=== PATIENT | female | born 1950 | race African-American/Black ===

== ENCOUNTER → 2017-11-21 | Outpatient (CLI) | payer MEDICARE, MEDICAID ==
[~2017-11-21] MED LIST: ALPR-341; AMLO5TAB88; ASPI-518 PO; ATEN100T PO; BARIUM SULFATE 450ML ORAL SUSP ONE; CERT200K; CIPROFLOXACIN 0.3% BOTHEYE; CLOP75TA16; CYCL30DR OP; ERGO400C; ESOM40CA; FLUT1DIS3; HYDR1TAB4; LORA10TA7; MONT10TA21; MORP30TA66; NASOI; NITR0.4T49; OMEG1CAP17; POTA20TA12; PREDG05 BOTHEYE; PREG50CA; SIMV40TA5; TRIA1TAB5 PO
== END | disposition home or self-care (01) ==
LOC: CT 07:21
PROVIDERS: ATTEND Internal Medicine Gastroenterology
DX: I70.0 Atherosclerosis of aorta (principal); N28.1 Cyst of kidney, acquired
CPT/HCPCS: 74176

== ENCOUNTER 2017-12-04 07:08 | Inpatient (IN) | payer MEDICARE, OTHER ==
[~2017-12-04] VITALS: Ht 165.1 cm; Wt 64.0 kg
[~2017-12-04 07:08] MED LIST changes: -BARIUM SULFATE 450ML ORAL SUSP ONE
[2017-12-04] MEDS ORDERED: SODIUM CHLORIDE 0.9% 1,000 ML IV ONE (07:40)
[2017-12-04] MEDS ORDERED: PANTOPRAZOLE SODIUM 40 MG/VIAL IV STA (07:40)
[2017-12-04 08:10] LABS: BASOPHILS % 0.7 % (0.0-2.0); EOSINOPHILS % 2.2 % (0.0-5.0); HEMOGLOBIN. 13.5 g/dL (12.0-16.0); LYMPHOCYTES % 21.7 % (20.0-50.0); MEAN CORPUSCULAR HEMOGLOBIN 31.6 pg (28.0-32.0); MEAN CORPUSCULAR VOLUME 93.2 fL (81.0-99.0); MONOCYTES % 6.4 % (2.0-8.0); PLATELET 245 x1000/uL (130-400); RED BLOOD CELL COUNT 4.29 mill/uL (4.2-5.4); RED CELL DISTRIBUTION WIDTH 14.1 % (11.6-14.6)
[2017-12-04 08:13] LABS: CHLORIDE 107 mEq/L (98-107)
[2017-12-04 08:16] LABS: PROTHROMBIN TIME 10.3 sec (9.4-11.6)
[2017-12-04 09:57] LABS: CLARITY URINE CLEAR (CLEAR); COLOR URINE YELLOW (YELLOW); KETONES URINE NEGATIVE (NEGATIVE); LEUKOCYTE ESTERASE URINE NEGATIVE (NEGATIVE); NITRITE URINE NEGATIVE (NEGATIVE); OCCULT BLOOD URINE 1+ (NEGATIVE); PH URINE 5.5 (4.5-8.0); PROTEIN URINE NEGATIVE (NEGATIVE); SPECIFIC GRAVITY URINE 1.031 (1.005-1.030); UROBILINOGEN URINE 0.2 E.U./dL (0.2-1.0)
[2017-12-04] MEDS ORDERED: MORPHINE SULFATE 2 MG/ML CPJ (NOT FOR IM USE) IV ONE (10:00)
[2017-12-04] MEDS ORDERED: MORPHINE SULFATE 4 MG/ML CPJ (NOT FOR IM USE) IV SCH (10:00)
[2017-12-04] MEDS ORDERED: ONDANSETRON HCL 4MG/2ML VIAL IV PRN (13:00)
[2017-12-04] MEDS ORDERED: METRONIDAZOLE 500 MG PREMIX 100 ML IV SCH (13:30)
[2017-12-04] MEDS: DEXT 5%/0.45% NACL 1000ML 1,000 ML IV SCH (13:49)
[2017-12-04] MEDS ORDERED: LEVOFLOXACIN 500MG PREMIX 100 ML IV SCH (14:00)
[2017-12-04 15:00] VITALS: BP 143/56
[2017-12-04] MEDS ORDERED: IOHEXOL-300 100 ML BOTTLE ONE (15:22)
[2017-12-04] MEDS: MORPHINE SULFATE 4 MG/ML CPJ (NOT FOR IM USE) IV PRN ×2 (16:55→21:25)
[2017-12-04] MEDS ORDERED: DIATR MEGLU/DIATRIZOATE SOLN 30ML PO SCH (17:00)
[2017-12-04] MEDS: LEVOFLOXACIN 500MG PREMIX 100 ML IV SCH (18:34)
[2017-12-04 20:00] VITALS: BP 143/62
[2017-12-04 20:15] LABS: HEMATOCRIT 37.7 % (36.0-48.0); HEMOGLOBIN 12.7 g/dL (12.0-16.0)
[2017-12-04] MEDS ORDERED: CLONIDINE 0.1MG TABLET PO PRN (21:00)
[2017-12-04] MEDS: INSULIN LISPRO 100 UNITS/ML SUBCUT SCH (21:00)
[2017-12-04] MEDS ORDERED: DEXTROSE 50% WATER 50ML SYRINGE IV PRN (21:00)
[2017-12-04] MEDS: METRONIDAZOLE 500 MG PREMIX 100 ML IV SCH (21:24)
[2017-12-04] MEDS: ALPRAZOLAM 0.5 MG TABLET PO SCH (21:24)
[2017-12-04] MEDS: PANTOPRAZOLE SODIUM 40 MG/VIAL IV SCH (21:24)
[2017-12-04] MEDS: BLOOD SUGAR DIAGNOSTIC STRIP TEST SCH (21:32)
[2017-12-04] MEDS ORDERED: ATEN100T PO (22:28)
[2017-12-04] MEDS ORDERED: LOSA50TA20 PO (22:29)
[2017-12-04] MEDS ORDERED: AMLO5TAB88 PO (22:29)
[2017-12-04] MEDS ORDERED: MONT10TA21 PO (22:30)
[2017-12-04] MEDS ORDERED: POTA-79 PO (22:32)
[2017-12-04] MEDS ORDERED: ASPI-1159 PO (22:35)
[2017-12-04] MEDS ORDERED: CLOP75TA16 PO (22:35)
[2017-12-04] MEDS ORDERED: ESOM40CA PO (22:35)
[2017-12-04] MEDS ORDERED: ALPR1TAB2 PO (22:36)
[2017-12-04] MEDS ORDERED: FOLI-43 PO (22:37)
[2017-12-05] VITALS: BP 118/52
[2017-12-05] MEDS ORDERED: TIZA4CAP6 PO (00:38)
[2017-12-05] MEDS ORDERED: SIMV40TA5 PO (00:38)
[2017-12-05] MEDS ORDERED: LORA10TA7 PO (00:43)
[2017-12-05] MEDS ORDERED: PREG75CA PO (00:43)
[2017-12-05] MEDS ORDERED: CHOL200074 PO (00:43)
[2017-12-05] MEDS ORDERED: DULO60CA44 PO (00:43)
[2017-12-05] MEDS ORDERED: FLUT1DIS3 INH (00:43)
[2017-12-05] MEDS: MORPHINE SULFATE 4 MG/ML CPJ (NOT FOR IM USE) IV PRN ×2 (01:10→13:31)
[2017-12-05] MEDS: DEXT 5%/0.45% NACL 1000ML 1,000 ML IV SCH ×3 (01:10→19:00)
[2017-12-05] MEDS ORDERED: HYDR-4009 PO (01:20)
[2017-12-05] MEDS ORDERED: METF500T4 PO (01:22)
[2017-12-05] MEDS ORDERED: MORP15TA67 PO (01:22)
[2017-12-05] MEDS ORDERED: MORP30TA66 PO (01:22)
[2017-12-05] MEDS ORDERED: NASOI BOTHNSTRLS (01:24)
[2017-12-05] MEDS ORDERED: ALBU90AE INH (01:24)
[2017-12-05 04:00] VITALS: BP 114/60
[2017-12-05] MEDS: METRONIDAZOLE 500 MG PREMIX 100 ML IV SCH ×2 (06:10→13:29)
[2017-12-05] MEDS: BLOOD SUGAR DIAGNOSTIC STRIP TEST SCH ×4 (07:04→21:08)
[2017-12-05] MEDS: INSULIN LISPRO 100 UNITS/ML SUBCUT SCH ×4 (07:04→21:00)
[2017-12-05] MEDS: PANTOPRAZOLE SODIUM 40 MG/VIAL IV SCH ×2 (07:15→21:03)
[2017-12-05 08:00] VITALS: BP 115/48
[2017-12-05] MEDS ORDERED: DIATR MEGLU/DIATRIZOATE SOLN 30ML PO NR (08:30)
[2017-12-05] MEDS: ALPRAZOLAM 0.5 MG TABLET PO SCH ×2 (08:48→21:03)
[2017-12-05] MEDS ORDERED: HEPARIN 1000 UNITS/ML 10ML ONE (10:38)
[2017-12-05 12:41] LABS: *AMPHETAMINES SCREEN URINE NEGATIVE (NEGATIVE); *BARBITURATES SCREEN URINE NEGATIVE (NEGATIVE); *BENZODIAZEPINES SCREEN URINE NEGATIVE (NEGATIVE); *COCAINE SCREEN URINE NEGATIVE (NEGATIVE); METHADONE URINE SCREEN NEGATIVE (NEGATIVE); OPIATES URINE SCREEN PRESUMTIVE POSITIVE (NEGATIVE)
[2017-12-05 12:42] LABS: CANNABINOID URINE SCREEN NEGATIVE (NEGATIVE); PHENCYCLIDINE URINE SCREEN NEGATIVE (NEGATIVE)
[2017-12-05] MEDS ORDERED: IOHEXOL-300 100 ML BOTTLE ONE (12:57)
[2017-12-05 16:00] VITALS: BP 132/58
[2017-12-05 17:09] LABS: BASOPHILS % 1.3 % (0.0-2.0); EOSINOPHILS % 2.6 % (0.0-5.0); HEMATOCRIT. 38.7 % (36.0-48.0); HEMOGLOBIN. 13.2 g/dL (12.0-16.0); LYMPHOCYTES % 30.5 % (20.0-50.0); MEAN CORPUSCULAR HEMOGLOBIN 32.1 pg (28.0-32.0); MEAN CORPUSCULAR VOLUME 94.3 fL (81.0-99.0); MEAN PLATELET VOLUME 8.7 fl (7.4-10.4); MONOCYTES % 9.7 % (2.0-8.0); NEUTROPHILS % 55.9 % (40.0-76.0); PLATELET 141 x1000/uL (130-400); RED CELL DISTRIBUTION WIDTH 14.1 % (11.6-14.6)
[2017-12-05] MEDS: LEVOFLOXACIN 500MG PREMIX 100 ML IV SCH (17:25)
[2017-12-05 20:00] VITALS: BP 131/58
[2017-12-05] MEDS: HYDROMORPHONE HCL/PF 2MG/ML CPJ IV PRN (20:24)
[2017-12-06] VITALS: BP 123/59
[2017-12-06] MEDS: METRONIDAZOLE 500 MG PREMIX 100 ML IV SCH ×2 (00:07→06:22)
[2017-12-06] MEDS: HYDROMORPHONE HCL/PF 2MG/ML CPJ IV PRN (03:03)
[2017-12-06 04:00] VITALS: BP 130/60
[2017-12-06] MEDS: BLOOD SUGAR DIAGNOSTIC STRIP TEST SCH (06:22)
[2017-12-06] MEDS: PANTOPRAZOLE SODIUM 40 MG/VIAL IV SCH (06:22)
[2017-12-06] MEDS: DEXT 5%/0.45% NACL 1000ML 1,000 ML IV SCH (06:22)
[2017-12-06] MEDS: INSULIN LISPRO 100 UNITS/ML SUBCUT SCH (07:50)
[2017-12-06] MEDS: ALPRAZOLAM 0.5 MG TABLET PO SCH (09:36)
[2017-12-06 11:00] VITALS: BP 134/60
== END 2017-12-06 11:50 | disposition home or self-care (01) | DRG 378 ==
LOC: ER 07:08 → 6EST 12:25 → EDBEDREQSVC 13:35 → EDBEDREQ 13:36 → ENRESERV 13:38
PROVIDERS: ADMIT Internal Medicine; ATTEND Internal Medicine
DX: K62.5 Hemorrhage of anus and rectum (principal); M87.9 Osteonecrosis, unspecified; M81.0 Age-related osteoporosis without current pathological fracture; M54.5 Low back pain; B19.20 Unspecified viral hepatitis C without hepatic coma; M06.9 Rheumatoid arthritis, unspecified; G89.29 Other chronic pain; Z79.02 Long term (current) use of antithrombotics/antiplatelets; Z79.82 Long term (current) use of aspirin; Z86.010 Personal history of colon polyps
CPT/HCPCS: 36415; 71045; 74177; 78278; 80053; 80305; 81003; 82962; 83690; 84484; 85014; 85018; 85025; 85610; 85730; 86850; 86900; 87015; 87045; 87086; 87427; 87449; 87493; 93005; 96365; 96367; 99285; A9560; C1893; C9113; J1170; J1644; J1815; J1956; J2270; J3490; J7030; Q9963; Q9967

== ENCOUNTER 2018-09-11 09:10 | Inpatient (IN) | payer MEDICARE, OTHER ==
[~2018-09-11] VITALS: Ht 165.1 cm; Wt 72.6 kg
[~2018-09-11 09:10] MED LIST changes: +ALBU90AE INH; -ALPR-341; +ALPR1TAB2 PO; -AMLO5TAB88; +AMLO5TAB88 PO; +ASPI-1159 PO; -ASPI-518 PO; -CERT200K; +CHOL200074 PO; -CIPROFLOXACIN 0.3% BOTHEYE; -CLOP75TA16; +CLOP75TA16 PO; -CYCL30DR OP; +DULO60CA44 PO; -ERGO400C; -ESOM40CA; +ESOM40CA PO; -FLUT1DIS3; +FLUT1DIS3 INH; +FOLI-43 PO; +HYDR-4009 PO; -HYDR1TAB4; -LORA10TA7; +LORA10TA7 PO; +LOSA50TA20 PO; +METF-414 PO; -MONT10TA21; +MONT10TA21 PO; +MORP15TA67 PO; -MORP30TA66; +MORP30TA66 PO; -NASOI; +NASOI BOTHNSTRLS; -NITR0.4T49; -OMEG1CAP17; +POTA-79 PO; -POTA20TA12; -PREDG05 BOTHEYE; -PREG50CA; +PREG75CA PO; -SIMV40TA5; +SIMV40TA5 PO; +TIZA4CAP6 PO; -TRIA1TAB5 PO
[2018-09-11] MEDS ORDERED: ONDANSETRON HCL 4MG/2ML INJ IV STA (10:33)
[2018-09-11] MEDS ORDERED: ALBUTEROL (0.083%) 2.5MG/3ML NEB HHN STA (10:33)
[2018-09-11] MEDS ORDERED: IPRATROPIUM BROMIDE (0.02%) 0.5MG/2.5ML NEB HHN STA (10:33)
[2018-09-11] MEDS ORDERED: FENTANYL CITRATE/PF 50MCG/ML 2ML VIAL IV ONE (10:45)
[2018-09-11] MEDS ORDERED: ASPIRIN 81MG TABLET PO ONE (10:45)
[2018-09-11] MEDS ORDERED: NITROGLYCERIN OINT 1GM/INCH UDPKT TD ONE (10:45)
[2018-09-11] MEDS ORDERED: IPRATROPIUM/ALBUTEROL 0.5-3(2.5)MG/3ML NEB ONE (10:54)
[2018-09-11] MEDS ORDERED: LEVOFLOXACIN 500MG PREMIX 100 ML IV ONE (11:15)
[2018-09-11 12:02] LABS: BASOPHILS % 0.8 % (0.0-2.0); EOSINOPHILS % 0.8 % (0.0-5.0); HEMATOCRIT. 36.7 % (36.0-48.0); HEMOGLOBIN. 12.5 g/dL (12.0-16.0); MEAN CORPUSCULAR HEMOGLOBIN 32.1 pg (28.0-32.0); MEAN CORPUSCULAR VOLUME 94.5 fL (81.0-99.0); MEAN PLATELET VOLUME 8.5 fl (7.4-10.4); NEUTROPHILS % 74.4 % (40.0-76.0); PLATELET 255 x1000/uL (130-400); RED BLOOD CELL COUNT 3.88 mill/uL (4.2-5.4); RED CELL DISTRIBUTION WIDTH 14.4 % (11.6-14.6)
[2018-09-11 12:05] LABS: CHLORIDE 105 mEq/L (98-107)
[2018-09-11 12:09] LABS: INR 1.1; PROTHROMBIN TIME 10.6 sec (9.1-11.1)
[2018-09-11 16:00] VITALS: BP 144/61
[2018-09-11] MEDS ORDERED: MORPHINE SULFATE 4 MG/ML CPJ (NOT FOR IM USE) IV NR (16:00)
[2018-09-11] MEDS ORDERED: IPRATROPIUM/ALBUTEROL 0.5-3(2.5)MG/3ML NEB HHN PRN (16:15)
[2018-09-11] MEDS ORDERED: DEXTROSE 50% WATER 50ML SYRINGE IV PRN (16:30)
[2018-09-11] MEDS: METHYLPREDNISOLONE SOD SUCC 40 MG/ML VIAL IV SCH (16:30)
[2018-09-11] MEDS: BLOOD SUGAR DIAGNOSTIC STRIP TEST SCH ×2 (16:30→20:41)
[2018-09-11] MEDS: MONTELUKAST SODIUM 10MG TABLET PO SCH (16:30)
[2018-09-11] MEDS: ATENOLOL 100 MG TABLET PO SCH (16:31)
[2018-09-11] MEDS: BENZONATATE 100MG CAPSULE PO PRN (16:31)
[2018-09-11] MEDS: LORATADINE 10MG TABLET PO SCH (16:31)
[2018-09-11] MEDS: INSULIN LISPRO 100 UNITS/ML SUBCUT SCH ×2 (17:15→20:41)
[2018-09-11] MEDS: PANTOPRAZOLE 40MG DR TABLET PO SCH (17:33)
[2018-09-11] MEDS: AZITHROMYCIN 500 MG in DEXT 5% WATER 250 ML IV SCH (17:33)
[2018-09-11] MEDS: TIZANIDINE HCL 4MG TABLET PO SCH (17:40)
[2018-09-11 18:16] VITALS: BP 144/61
[2018-09-11] MEDS: HYDROCODONE/ACETAMINOPHEN 10/325MG TABLET PO PRN ×2 (18:39→23:33)
[2018-09-11 20:00] VITALS: BP 127/54
[2018-09-11] MEDS: ATORVASTATIN CALCIUM 20MG TABLET PO SCH (20:41)
[2018-09-11] MEDS: LOSARTAN POTASSIUM 50 MG TABLET PO SCH (20:41)
[2018-09-11] MEDS: IPRATROPIUM/ALBUTEROL 0.5-3(2.5)MG/3ML NEB HHN SCH (20:53)
[2018-09-11 23:30] VITALS: BP 120/57
[2018-09-12] MEDS: METHYLPREDNISOLONE SOD SUCC 40 MG/ML VIAL IV SCH ×3 (00:40→17:03)
[2018-09-12] MEDS: IPRATROPIUM/ALBUTEROL 0.5-3(2.5)MG/3ML NEB HHN SCH ×6 (00:43→20:52)
[2018-09-12 01:23] LABS: CLARITY URINE CLOUDY (CLEAR); COLOR URINE DARK YELLOW (YELLOW); KETONES URINE TRACE (NEGATIVE); LEUKOCYTE ESTERASE URINE TRACE (NEGATIVE); NITRITE URINE NEGATIVE (NEGATIVE); OCCULT BLOOD URINE NEGATIVE (NEGATIVE); PROTEIN URINE TRACE (NEGATIVE); SPECIFIC GRAVITY URINE 1.022 (1.005-1.030)
[2018-09-12 04:00] VITALS: BP 141/58
[2018-09-12] MEDS: HYDROCODONE/ACETAMINOPHEN 10/325MG TABLET PO PRN ×4 (06:18→21:13)
[2018-09-12] MEDS: PROMETHAZINE/DEXTROMETHORPHAN 6.25-15MG/5ML BOTTLE 120ML PO PRN (06:20)
[2018-09-12] MEDS: INSULIN LISPRO 100 UNITS/ML SUBCUT SCH ×4 (06:36→21:15)
[2018-09-12] MEDS: BLOOD SUGAR DIAGNOSTIC STRIP TEST SCH ×4 (06:36→21:15)
[2018-09-12 07:05] LABS: BASOPHILS % 0.8 % (0.0-2.0); EOSINOPHILS % 0.1 % (0.0-5.0); HEMATOCRIT. 35.3 % (36.0-48.0); HEMOGLOBIN. 11.9 g/dL (12.0-16.0); LYMPHOCYTES % 9.8 % (20.0-50.0); MEAN CORPUSCULAR HEMOGLOBIN 32.2 pg (28.0-32.0); MEAN CORPUSCULAR VOLUME 95.5 fL (81.0-99.0); MEAN PLATELET VOLUME 8.7 fl (7.4-10.4); MONOCYTES % 4.5 % (2.0-8.0); NEUTROPHILS % 84.8 % (40.0-76.0); PLATELET 256 x1000/uL (130-400); RED BLOOD CELL COUNT 3.69 mill/uL (4.2-5.4); RED CELL DISTRIBUTION WIDTH 14.9 % (11.6-14.6)
[2018-09-12 07:31] LABS: CHLORIDE 103 mEq/L (98-107)
[2018-09-12 08:00] VITALS: BP 140/61
[2018-09-12] MEDS ORDERED: METFORMIN HCL 500MG TABLET PO SCH (09:00)
[2018-09-12] MEDS: CHOLECALCIFEROL (D3) 1000 UNIT TABLET PO SCH (09:07)
[2018-09-12] MEDS: ATENOLOL 100 MG TABLET PO SCH ×2 (09:07→17:02)
[2018-09-12] MEDS: PANTOPRAZOLE 40MG DR TABLET PO SCH (09:08)
[2018-09-12] MEDS: CLOPIDOGREL 75MG TABLET PO SCH (09:09)
[2018-09-12] MEDS: AMLODIPINE 5MG TABLET PO SCH (09:09)
[2018-09-12] MEDS: TIZANIDINE HCL 4MG TABLET PO SCH ×2 (09:09→17:02)
[2018-09-12] MEDS: FOLIC ACID 1MG TABLET PO SCH (09:09)
[2018-09-12] MEDS: LORATADINE 10MG TABLET PO SCH (09:09)
[2018-09-12] MEDS: ENOXAPARIN 40MG/0.4ML SYR SUBCUT SCH (09:10)
[2018-09-12] MEDS: ASPIRIN 81MG EC TABLET PO SCH (09:10)
[2018-09-12 12:00] VITALS: BP 138/72
[2018-09-12] MEDS: LEVOFLOXACIN 500MG PREMIX 100 ML IV SCH (12:00)
[2018-09-12] MEDS: METFORMIN HCL 500MG TABLET PO SCH (14:15)
[2018-09-12 16:00] VITALS: BP 160/89
[2018-09-12] MEDS: AZITHROMYCIN 500 MG in DEXT 5% WATER 250 ML IV SCH (17:02)
[2018-09-12] MEDS: MONTELUKAST SODIUM 10MG TABLET PO SCH (17:02)
[2018-09-12 20:00] VITALS: BP 125/60
[2018-09-12] MEDS: ATORVASTATIN CALCIUM 20MG TABLET PO SCH (21:12)
[2018-09-12] MEDS: LOSARTAN POTASSIUM 50 MG TABLET PO SCH (21:12)
[2018-09-12] MEDS: NAPROXEN 250MG TABLET PO SCH (21:12)
[2018-09-13] VITALS (7 sets, daily range): BP systolic 119–164; BP diastolic 55–92
[2018-09-13] MEDS: ALPRAZOLAM 0.5 MG TABLET PO PRN ×2 (00:29→10:34)
[2018-09-13] MEDS: IPRATROPIUM/ALBUTEROL 0.5-3(2.5)MG/3ML NEB HHN SCH ×6 (00:34→21:15)
[2018-09-13] MEDS: METHYLPREDNISOLONE SOD SUCC 40 MG/ML VIAL IV SCH ×2 (00:35→09:30)
[2018-09-13] MEDS: BLOOD SUGAR DIAGNOSTIC STRIP TEST SCH ×4 (06:21→20:23)
[2018-09-13] MEDS: INSULIN LISPRO 100 UNITS/ML SUBCUT SCH ×4 (06:42→20:23)
[2018-09-13] MEDS ORDERED: MORPHINE SULFATE 4 MG/ML CPJ (NOT FOR IM USE) IV SCH (07:15)
[2018-09-13] MEDS ORDERED: MORPHINE SULFATE 4 MG/ML CPJ (NOT FOR IM USE) IV PRN (08:00)
[2018-09-13] MEDS: ASPIRIN 81MG EC TABLET PO SCH (09:28)
[2018-09-13] MEDS: CHOLECALCIFEROL (D3) 1000 UNIT TABLET PO SCH (09:28)
[2018-09-13] MEDS: TIZANIDINE HCL 4MG TABLET PO SCH ×2 (09:28→16:54)
[2018-09-13] MEDS: LORATADINE 10MG TABLET PO SCH (09:28)
[2018-09-13] MEDS: FAMOTIDINE 20MG TABLET PO SCH (09:29)
[2018-09-13] MEDS: AMLODIPINE 5MG TABLET PO SCH (09:29)
[2018-09-13] MEDS: FOLIC ACID 1MG TABLET PO SCH (09:29)
[2018-09-13] MEDS: METFORMIN HCL 500MG TABLET PO SCH (09:29)
[2018-09-13] MEDS: NAPROXEN 250MG TABLET PO SCH ×2 (09:29→20:22)
[2018-09-13] MEDS: CLOPIDOGREL 75MG TABLET PO SCH (09:29)
[2018-09-13] MEDS: ATENOLOL 100 MG TABLET PO SCH ×2 (09:30→16:55)
[2018-09-13] MEDS: ENOXAPARIN 40MG/0.4ML SYR SUBCUT SCH (09:31)
[2018-09-13] MEDS: NITROGLYCERIN 0.4MG TABLET SL SL PRN ×3 (09:52→10:17)
[2018-09-13] MEDS ORDERED: ALPRAZOLAM 0.5 MG TABLET PO PRN (12:00)
[2018-09-13] MEDS: LEVOFLOXACIN 500MG PREMIX 100 ML IV SCH (14:24)
[2018-09-13] MEDS: MONTELUKAST SODIUM 10MG TABLET PO SCH (16:54)
[2018-09-13] MEDS: AZITHROMYCIN 500 MG in DEXT 5% WATER 250 ML IV SCH (16:56)
[2018-09-13] MEDS: ATORVASTATIN CALCIUM 20MG TABLET PO SCH (20:22)
[2018-09-13] MEDS: LOSARTAN POTASSIUM 50 MG TABLET PO SCH (20:22)
[2018-09-13] MEDS: HYDROCODONE/ACETAMINOPHEN 10/325MG TABLET PO PRN (20:45)
[2018-09-14] VITALS: BP 107/71
[2018-09-14] MEDS: IPRATROPIUM/ALBUTEROL 0.5-3(2.5)MG/3ML NEB HHN SCH ×7 (00:17→23:58)
[2018-09-14] MEDS: HYDROCODONE/ACETAMINOPHEN 10/325MG TABLET PO PRN ×3 (00:38→18:22)
[2018-09-14] MEDS: BENZONATATE 100MG CAPSULE PO PRN ×2 (03:43→21:40)
[2018-09-14 04:00] VITALS: BP 134/68
[2018-09-14] MEDS: INSULIN LISPRO 100 UNITS/ML SUBCUT SCH ×4 (06:50→21:00)
[2018-09-14] MEDS: BLOOD SUGAR DIAGNOSTIC STRIP TEST SCH ×4 (06:50→21:36)
[2018-09-14 07:02] LABS: BASOPHILS % 0.2 % (0.0-2.0); EOSINOPHILS % 1.4 % (0.0-5.0); HEMATOCRIT. 34.6 % (36.0-48.0); HEMOGLOBIN. 11.7 g/dL (12.0-16.0); LYMPHOCYTES % 10.6 % (20.0-50.0); MEAN CORPUSCULAR HEMOGLOBIN 32.2 pg (28.0-32.0); MEAN CORPUSCULAR VOLUME 95.1 fL (81.0-99.0); MEAN PLATELET VOLUME 8.5 fl (7.4-10.4); MONOCYTES % 8.4 % (2.0-8.0); NEUTROPHILS % 79.4 % (40.0-76.0); PLATELET 235 x1000/uL (130-400); RED BLOOD CELL COUNT 3.64 mill/uL (4.2-5.4); RED CELL DISTRIBUTION WIDTH 14.9 % (11.6-14.6)
[2018-09-14 07:27] LABS: CHLORIDE 104 mEq/L (98-107)
[2018-09-14 08:00] VITALS: BP 142/61
[2018-09-14] MEDS: CHOLECALCIFEROL (D3) 1000 UNIT TABLET PO SCH (08:34)
[2018-09-14] MEDS: ASPIRIN 81MG EC TABLET PO SCH (08:34)
[2018-09-14] MEDS: FOLIC ACID 1MG TABLET PO SCH (08:35)
[2018-09-14] MEDS: FAMOTIDINE 20MG TABLET PO SCH (08:35)
[2018-09-14] MEDS: METFORMIN HCL 500MG TABLET PO SCH (08:36)
[2018-09-14] MEDS: LORATADINE 10MG TABLET PO SCH (08:36)
[2018-09-14] MEDS: PREDNISONE 10MG TABLET PO SCH (08:36)
[2018-09-14] MEDS: CLOPIDOGREL 75MG TABLET PO SCH (08:36)
[2018-09-14] MEDS: TIZANIDINE HCL 4MG TABLET PO SCH ×2 (08:36→16:46)
[2018-09-14] MEDS: AMLODIPINE 5MG TABLET PO SCH (08:36)
[2018-09-14] MEDS: NAPROXEN 250MG TABLET PO SCH ×2 (08:37→21:36)
[2018-09-14] MEDS: ATENOLOL 100 MG TABLET PO SCH ×2 (08:37→16:47)
[2018-09-14] MEDS: ENOXAPARIN 40MG/0.4ML SYR SUBCUT SCH (08:38)
[2018-09-14] MEDS: PROMETHAZINE/DEXTROMETHORPHAN 6.25-15MG/5ML BOTTLE 120ML PO PRN (09:09)
[2018-09-14] MEDS: LEVOFLOXACIN 500MG PREMIX 100 ML IV SCH (12:42)
[2018-09-14 16:00] VITALS: BP 141/57
[2018-09-14] MEDS: MONTELUKAST SODIUM 10MG TABLET PO SCH (16:47)
[2018-09-14] MEDS: AZITHROMYCIN 500 MG in DEXT 5% WATER 250 ML IV SCH (16:47)
[2018-09-14 20:00] VITALS: BP 157/62
[2018-09-14] MEDS ORDERED: SULFAMETHOXAZOLE/TRIMETHOPRIM 800/160MG TABLET PO NR (20:30)
[2018-09-14] MEDS: LOSARTAN POTASSIUM 50 MG TABLET PO SCH (21:36)
[2018-09-14] MEDS: ATORVASTATIN CALCIUM 20MG TABLET PO SCH (21:36)
[2018-09-15] VITALS: BP 145/57
[2018-09-15 04:00] VITALS: BP 146/61
[2018-09-15] MEDS: IPRATROPIUM/ALBUTEROL 0.5-3(2.5)MG/3ML NEB HHN SCH ×5 (04:37→21:45)
[2018-09-15] MEDS: NITROGLYCERIN 0.4MG TABLET SL SL PRN ×3 (04:43→04:58)
[2018-09-15] MEDS: ASPIRIN 81MG EC TABLET PO SCH (05:32)
[2018-09-15] MEDS: MORPHINE SULFATE 4 MG/ML CPJ (NOT FOR IM USE) IV PRN ×2 (06:43→19:08)
[2018-09-15] MEDS: BLOOD SUGAR DIAGNOSTIC STRIP TEST SCH ×4 (06:44→21:24)
[2018-09-15] MEDS: INSULIN LISPRO 100 UNITS/ML SUBCUT SCH ×4 (06:44→21:00)
[2018-09-15 07:05] LABS: BASOPHILS % 0.2 % (0.0-2.0); HEMATOCRIT. 33.1 % (36.0-48.0); HEMOGLOBIN. 11.2 g/dL (12.0-16.0); LYMPHOCYTES % 12.5 % (20.0-50.0); MEAN CORPUSCULAR VOLUME 94.9 fL (81.0-99.0); MEAN PLATELET VOLUME 8.9 fl (7.4-10.4); MONOCYTES % 9.7 % (2.0-8.0); NEUTROPHILS % 76.6 % (40.0-76.0); PLATELET 227 x1000/uL (130-400); RED BLOOD CELL COUNT 3.49 mill/uL (4.2-5.4); RED CELL DISTRIBUTION WIDTH 14.9 % (11.6-14.6)
[2018-09-15 07:58] LABS: CHLORIDE 105 mEq/L (98-107)
[2018-09-15 08:00] VITALS: BP 127/58
[2018-09-15] MEDS: FOLIC ACID 1MG TABLET PO SCH (08:46)
[2018-09-15] MEDS: FAMOTIDINE 20MG TABLET PO SCH (08:46)
[2018-09-15] MEDS: CLOPIDOGREL 75MG TABLET PO SCH (08:46)
[2018-09-15] MEDS: TIZANIDINE HCL 4MG TABLET PO SCH ×2 (08:46→16:43)
[2018-09-15] MEDS: AMLODIPINE 5MG TABLET PO SCH (08:46)
[2018-09-15] MEDS: ATENOLOL 100 MG TABLET PO SCH ×2 (08:47→16:43)
[2018-09-15] MEDS: CHOLECALCIFEROL (D3) 1000 UNIT TABLET PO SCH (08:47)
[2018-09-15] MEDS: METFORMIN HCL 500MG TABLET PO SCH (08:47)
[2018-09-15] MEDS: LORATADINE 10MG TABLET PO SCH (08:47)
[2018-09-15] MEDS: SULFAMETHOXAZOLE/TRIMETHOPRIM 800/160MG TABLET PO SCH ×2 (08:47→21:24)
[2018-09-15] MEDS: PREDNISONE 10MG TABLET PO SCH (08:47)
[2018-09-15] MEDS: NAPROXEN 250MG TABLET PO SCH ×2 (08:47→21:25)
[2018-09-15] MEDS: ENOXAPARIN 40MG/0.4ML SYR SUBCUT SCH (08:48)
[2018-09-15] MEDS ORDERED: IOHEXOL-300 100 ML BOTTLE ONE (09:47)
[2018-09-15] MEDS ORDERED: ALPRAZOLAM 0.5 MG TABLET PO PRN (11:00)
[2018-09-15 12:00] VITALS: BP 119/41
[2018-09-15] MEDS: LEVOFLOXACIN 500MG PREMIX 100 ML IV SCH (12:21)
[2018-09-15] MEDS: HYDROCODONE/ACETAMINOPHEN 10/325MG TABLET PO PRN (12:26)
[2018-09-15] MEDS ORDERED: HYDROCODONE/ACETAMINOPHEN 10/325MG TABLET PO PRN (14:45)
[2018-09-15 16:00] VITALS: BP 130/57
[2018-09-15] MEDS: MONTELUKAST SODIUM 10MG TABLET PO SCH (16:43)
[2018-09-15] MEDS: AZITHROMYCIN 500 MG in DEXT 5% WATER 250 ML IV SCH (16:43)
[2018-09-15 20:00] VITALS: BP 125/47
[2018-09-15] MEDS: ATORVASTATIN CALCIUM 20MG TABLET PO SCH (21:25)
[2018-09-15] MEDS: LOSARTAN POTASSIUM 50 MG TABLET PO SCH (21:25)
[2018-09-16] VITALS (8 sets, daily range): BP systolic 112–165; BP diastolic 42–71
[2018-09-16] MEDS: IPRATROPIUM/ALBUTEROL 0.5-3(2.5)MG/3ML NEB HHN SCH ×6 (01:30→20:44)
[2018-09-16] MEDS: MORPHINE SULFATE 4 MG/ML CPJ (NOT FOR IM USE) IV PRN ×3 (01:31→23:44)
[2018-09-16] MEDS: HYDROCODONE/ACETAMINOPHEN 10/325MG TABLET PO PRN ×2 (04:36→09:36)
[2018-09-16] MEDS: BLOOD SUGAR DIAGNOSTIC STRIP TEST SCH ×4 (06:28→21:00)
[2018-09-16] MEDS: INSULIN LISPRO 100 UNITS/ML SUBCUT SCH ×4 (06:28→21:00)
[2018-09-16] MEDS: NAPROXEN 250MG TABLET PO SCH ×2 (09:32→21:10)
[2018-09-16] MEDS: LORATADINE 10MG TABLET PO SCH (09:32)
[2018-09-16] MEDS: METFORMIN HCL 500MG TABLET PO SCH (09:32)
[2018-09-16] MEDS: PREDNISONE 10MG TABLET PO SCH (09:33)
[2018-09-16] MEDS: TIZANIDINE HCL 4MG TABLET PO SCH ×2 (09:33→17:45)
[2018-09-16] MEDS: FAMOTIDINE 20MG TABLET PO SCH (09:33)
[2018-09-16] MEDS: SULFAMETHOXAZOLE/TRIMETHOPRIM 800/160MG TABLET PO SCH ×2 (09:33→21:10)
[2018-09-16] MEDS: FOLIC ACID 1MG TABLET PO SCH (09:33)
[2018-09-16] MEDS: CHOLECALCIFEROL (D3) 1000 UNIT TABLET PO SCH (09:33)
[2018-09-16] MEDS: ASPIRIN 81MG EC TABLET PO SCH (09:33)
[2018-09-16] MEDS: AMLODIPINE 5MG TABLET PO SCH (09:34)
[2018-09-16] MEDS: ATENOLOL 100 MG TABLET PO SCH ×2 (09:34→17:46)
[2018-09-16] MEDS: CLOPIDOGREL 75MG TABLET PO SCH (09:34)
[2018-09-16] MEDS: ENOXAPARIN 40MG/0.4ML SYR SUBCUT SCH (09:35)
[2018-09-16] MEDS: LEVOFLOXACIN 500MG PREMIX 100 ML IV SCH (12:11)
[2018-09-16 16:06] LABS: INR 1.1; PARTIAL THROMBOPLASTIN TIME 25.1 sec (23.4-31.0); PROTHROMBIN TIME 10.9 sec (9.1-11.1)
[2018-09-16] MEDS: MONTELUKAST SODIUM 10MG TABLET PO SCH (17:45)
[2018-09-16] MEDS: AZITHROMYCIN 500 MG in DEXT 5% WATER 250 ML IV SCH (17:45)
[2018-09-16] MEDS: ATORVASTATIN CALCIUM 20MG TABLET PO SCH (21:10)
[2018-09-16] MEDS: LOSARTAN POTASSIUM 50 MG TABLET PO SCH (21:10)
[2018-09-17] MEDS: IPRATROPIUM/ALBUTEROL 0.5-3(2.5)MG/3ML NEB HHN SCH ×6 (00:23→20:14)
[2018-09-17 04:00] VITALS: BP 144/69
[2018-09-17] MEDS: MORPHINE SULFATE 4 MG/ML CPJ (NOT FOR IM USE) IV PRN ×2 (06:01→14:54)
[2018-09-17] MEDS: BLOOD SUGAR DIAGNOSTIC STRIP TEST SCH ×4 (06:06→21:00)
[2018-09-17] MEDS: INSULIN LISPRO 100 UNITS/ML SUBCUT SCH ×4 (06:07→21:00)
[2018-09-17 08:00] VITALS: BP 163/75
[2018-09-17] MEDS: METFORMIN HCL 500MG TABLET PO SCH (08:55)
[2018-09-17] MEDS: LORATADINE 10MG TABLET PO SCH (08:55)
[2018-09-17] MEDS: SULFAMETHOXAZOLE/TRIMETHOPRIM 800/160MG TABLET PO SCH ×2 (08:55→21:28)
[2018-09-17] MEDS: FAMOTIDINE 20MG TABLET PO SCH (08:55)
[2018-09-17] MEDS: FOLIC ACID 1MG TABLET PO SCH (08:55)
[2018-09-17] MEDS: TIZANIDINE HCL 4MG TABLET PO SCH ×2 (08:55→18:02)
[2018-09-17] MEDS: CHOLECALCIFEROL (D3) 1000 UNIT TABLET PO SCH (08:55)
[2018-09-17] MEDS: AMLODIPINE 5MG TABLET PO SCH (08:55)
[2018-09-17] MEDS: NAPROXEN 250MG TABLET PO SCH ×2 (08:55→21:28)
[2018-09-17] MEDS: PREDNISONE 10MG TABLET PO SCH (08:55)
[2018-09-17] MEDS: ATENOLOL 100 MG TABLET PO SCH ×2 (08:56→18:02)
[2018-09-17] MEDS: ENOXAPARIN 40MG/0.4ML SYR SUBCUT SCH (08:56)
[2018-09-17] MEDS: HYDROCODONE/ACETAMINOPHEN 10/325MG TABLET PO PRN (10:40)
[2018-09-17 12:00] VITALS: BP 118/47
[2018-09-17] MEDS: LEVOFLOXACIN 500MG PREMIX 100 ML IV SCH (12:31)
[2018-09-17 16:00] VITALS: BP 126/53
[2018-09-17] MEDS: AZITHROMYCIN 500 MG in DEXT 5% WATER 250 ML IV SCH (18:01)
[2018-09-17] MEDS: MONTELUKAST SODIUM 10MG TABLET PO SCH (18:02)
[2018-09-17 18:37] LABS: BG BASE EXCESS -0.3 mmol/L (-2.0-2.0); BG CARBOXYHEMOGLOBIN 0.2 % (0.5-1.5); BG DEOXYHEMOGLOBIN 7.9 % (0.0-5.0); BG FRACTION INSPIRED OXYGEN 21; BG HCO3 ACT 21.9 mmol/L (22.0-26.0); BG METHEMOGLOBIN 0.3 % (0.0-1.5); BG OXYGEN SATURATION 92.1 % (92.0-98.5); BG OXYHEMOGLOBIN 91.6 % (94.0-97.0); BG PCO2 28.6 mmHg (35.0-45.0); BG PH 7.501 (7.350-7.450); BG PO2 62.3 mmHg (75.0-100.0); BG SAMPLE SITE RIGHT BRACHIAL; BG TOTAL HEMOGLOBIN 12.4 g/dL (12.0-18.0); BG VENT MODE ROOM AIR
[2018-09-17 20:00] VITALS: BP 108/48
[2018-09-17 21:03] LABS: CHLORIDE 104 mEq/L (98-107)
[2018-09-17] MEDS: LOSARTAN POTASSIUM 50 MG TABLET PO SCH (21:28)
[2018-09-17] MEDS: ATORVASTATIN CALCIUM 20MG TABLET PO SCH (21:28)
[2018-09-18] VITALS: BP 127/61
[2018-09-18] MEDS: IPRATROPIUM/ALBUTEROL 0.5-3(2.5)MG/3ML NEB HHN SCH ×6 (00:02→21:01)
[2018-09-18] MEDS: MORPHINE SULFATE 4 MG/ML CPJ (NOT FOR IM USE) IV PRN ×3 (01:12→17:29)
[2018-09-18 04:00] VITALS: BP 108/48
[2018-09-18] MEDS: BLOOD SUGAR DIAGNOSTIC STRIP TEST SCH ×4 (06:04→21:00)
[2018-09-18] MEDS: INSULIN LISPRO 100 UNITS/ML SUBCUT SCH ×4 (06:04→22:26)
[2018-09-18 08:00] VITALS: BP 148/60
[2018-09-18 08:09] LABS: BASOPHILS % 0.5 % (0.0-2.0); EOSINOPHILS % 1.1 % (0.0-5.0); HEMATOCRIT. 32.5 % (36.0-48.0); HEMOGLOBIN. 10.9 g/dL (12.0-16.0); LYMPHOCYTES % 12.8 % (20.0-50.0); MEAN CORPUSCULAR HEMOGLOBIN 31.4 pg (28.0-32.0); MEAN CORPUSCULAR VOLUME 93.9 fL (81.0-99.0); MEAN PLATELET VOLUME 8.3 fl (7.4-10.4); MONOCYTES % 9.9 % (2.0-8.0); NEUTROPHILS % 75.7 % (40.0-76.0); PLATELET 220 x1000/uL (130-400); RED BLOOD CELL COUNT 3.46 mill/uL (4.2-5.4); RED CELL DISTRIBUTION WIDTH 14.3 % (11.6-14.6)
[2018-09-18] MEDS: ENOXAPARIN 40MG/0.4ML SYR SUBCUT SCH (09:40)
[2018-09-18] MEDS: NAPROXEN 250MG TABLET PO SCH ×2 (09:41→22:27)
[2018-09-18] MEDS: FOLIC ACID 1MG TABLET PO SCH (09:41)
[2018-09-18] MEDS: METFORMIN HCL 500MG TABLET PO SCH (09:41)
[2018-09-18] MEDS: CHOLECALCIFEROL (D3) 1000 UNIT TABLET PO SCH (09:41)
[2018-09-18] MEDS: TIZANIDINE HCL 4MG TABLET PO SCH ×2 (09:42→16:42)
[2018-09-18] MEDS: PREDNISONE 10MG TABLET PO SCH (09:42)
[2018-09-18] MEDS: ATENOLOL 100 MG TABLET PO SCH ×2 (09:42→16:42)
[2018-09-18] MEDS: SULFAMETHOXAZOLE/TRIMETHOPRIM 800/160MG TABLET PO SCH ×2 (09:42→22:27)
[2018-09-18] MEDS: FAMOTIDINE 20MG TABLET PO SCH (09:42)
[2018-09-18] MEDS: LORATADINE 10MG TABLET PO SCH (09:42)
[2018-09-18] MEDS: AMLODIPINE 5MG TABLET PO SCH (09:42)
[2018-09-18 12:00] VITALS: BP 111/58
[2018-09-18] MEDS: LEVOFLOXACIN 500MG PREMIX 100 ML IV SCH (12:45)
[2018-09-18 16:00] VITALS: BP 139/76
[2018-09-18] MEDS: MONTELUKAST SODIUM 10MG TABLET PO SCH (16:43)
[2018-09-18] MEDS: AZITHROMYCIN 500 MG in DEXT 5% WATER 250 ML IV SCH (16:43)
[2018-09-18] MEDS: METHYLPREDNISOLONE SOD SUCC 40 MG/ML VIAL IV SCH (19:00)
[2018-09-18 20:00] VITALS: BP 129/60
[2018-09-18] MEDS: ATORVASTATIN CALCIUM 20MG TABLET PO SCH (22:27)
[2018-09-18] MEDS: LOSARTAN POTASSIUM 50 MG TABLET PO SCH (22:27)
[2018-09-19] VITALS: BP 139/64
[2018-09-19] MEDS: IPRATROPIUM/ALBUTEROL 0.5-3(2.5)MG/3ML NEB HHN SCH ×6 (01:20→21:30)
[2018-09-19] MEDS: HYDROCODONE/ACETAMINOPHEN 10/325MG TABLET PO PRN (01:51)
[2018-09-19] MEDS: METHYLPREDNISOLONE SOD SUCC 40 MG/ML VIAL IV SCH ×3 (02:00→18:12)
[2018-09-19 04:00] VITALS: BP 140/69
[2018-09-19] MEDS: BLOOD SUGAR DIAGNOSTIC STRIP TEST SCH ×4 (06:09→21:04)
[2018-09-19] MEDS: MORPHINE SULFATE 4 MG/ML CPJ (NOT FOR IM USE) IV PRN ×3 (06:15→15:59)
[2018-09-19] MEDS: INSULIN LISPRO 100 UNITS/ML SUBCUT SCH ×4 (06:15→21:00)
[2018-09-19 06:55] LABS: BASOPHILS % 0.3 % (0.0-2.0); EOSINOPHILS % 0.2 % (0.0-5.0); HEMATOCRIT. 32.3 % (36.0-48.0); HEMOGLOBIN. 10.9 g/dL (12.0-16.0); LYMPHOCYTES % 10.8 % (20.0-50.0); MEAN CORPUSCULAR HEMOGLOBIN 31.7 pg (28.0-32.0); MEAN CORPUSCULAR VOLUME 93.9 fL (81.0-99.0); MEAN PLATELET VOLUME 8.9 fl (7.4-10.4); MONOCYTES % 8.2 % (2.0-8.0); NEUTROPHILS % 80.5 % (40.0-76.0); PLATELET 246 x1000/uL (130-400); RED BLOOD CELL COUNT 3.45 mill/uL (4.2-5.4); RED CELL DISTRIBUTION WIDTH 14.6 % (11.6-14.6)
[2018-09-19 08:00] VITALS: BP 142/71
[2018-09-19] MEDS: SULFAMETHOXAZOLE/TRIMETHOPRIM 800/160MG TABLET PO SCH ×2 (08:55→21:04)
[2018-09-19] MEDS: TIZANIDINE HCL 4MG TABLET PO SCH ×2 (08:55→18:12)
[2018-09-19] MEDS: NAPROXEN 250MG TABLET PO SCH ×2 (08:55→21:07)
[2018-09-19] MEDS: LORATADINE 10MG TABLET PO SCH (08:55)
[2018-09-19] MEDS: FAMOTIDINE 20MG TABLET PO SCH (08:55)
[2018-09-19] MEDS: CHOLECALCIFEROL (D3) 1000 UNIT TABLET PO SCH (08:55)
[2018-09-19] MEDS: METFORMIN HCL 500MG TABLET PO SCH (09:00)
[2018-09-19] MEDS: FOLIC ACID 1MG TABLET PO SCH (09:00)
[2018-09-19] MEDS: ATENOLOL 100 MG TABLET PO SCH ×2 (09:00→18:16)
[2018-09-19] MEDS: AMLODIPINE 5MG TABLET PO SCH (09:00)
[2018-09-19] MEDS: ENOXAPARIN 40MG/0.4ML SYR SUBCUT SCH (09:22)
[2018-09-19 12:00] VITALS: BP 96/48
[2018-09-19] MEDS: LEVOFLOXACIN 500MG PREMIX 100 ML IV SCH (12:23)
[2018-09-19 16:00] VITALS: BP 95/62
[2018-09-19] MEDS: MONTELUKAST SODIUM 10MG TABLET PO SCH (18:12)
[2018-09-19 20:00] VITALS: BP 140/59
[2018-09-19] MEDS: ATORVASTATIN CALCIUM 20MG TABLET PO SCH (21:04)
[2018-09-19] MEDS: LOSARTAN POTASSIUM 50 MG TABLET PO SCH (21:04)
[2018-09-20] VITALS (7 sets, daily range): BP systolic 98–135; BP diastolic 40–61
[2018-09-20] MEDS: MORPHINE SULFATE 4 MG/ML CPJ (NOT FOR IM USE) IV PRN ×6 (00:01→23:35)
[2018-09-20] MEDS: IPRATROPIUM/ALBUTEROL 0.5-3(2.5)MG/3ML NEB HHN SCH ×6 (00:47→20:48)
[2018-09-20] MEDS: METHYLPREDNISOLONE SOD SUCC 40 MG/ML VIAL IV SCH ×3 (03:04→17:20)
[2018-09-20] MEDS: BLOOD SUGAR DIAGNOSTIC STRIP TEST SCH ×4 (05:53→21:26)
[2018-09-20] MEDS: INSULIN LISPRO 100 UNITS/ML SUBCUT SCH ×4 (06:20→21:35)
[2018-09-20] MEDS: FAMOTIDINE 20MG TABLET PO SCH (08:34)
[2018-09-20] MEDS: ATENOLOL 100 MG TABLET PO SCH ×2 (08:34→17:00)
[2018-09-20] MEDS: SULFAMETHOXAZOLE/TRIMETHOPRIM 800/160MG TABLET PO SCH (08:34)
[2018-09-20] MEDS: NAPROXEN 250MG TABLET PO SCH ×2 (08:34→20:15)
[2018-09-20] MEDS: ENOXAPARIN 40MG/0.4ML SYR SUBCUT SCH (08:34)
[2018-09-20 08:35] LABS: CLARITY URINE CLEAR (CLEAR); COLOR URINE YELLOW (YELLOW); KETONES URINE NEGATIVE (NEGATIVE); LEUKOCYTE ESTERASE URINE NEGATIVE (NEGATIVE); NITRITE URINE NEGATIVE (NEGATIVE); OCCULT BLOOD URINE NEGATIVE (NEGATIVE); PROTEIN URINE NEGATIVE (NEGATIVE)
[2018-09-20] MEDS: LORATADINE 10MG TABLET PO SCH (08:35)
[2018-09-20] MEDS: CHOLECALCIFEROL (D3) 1000 UNIT TABLET PO SCH (08:35)
[2018-09-20] MEDS: AMLODIPINE 5MG TABLET PO SCH (08:35)
[2018-09-20] MEDS: TIZANIDINE HCL 4MG TABLET PO SCH ×2 (08:35→17:20)
[2018-09-20] MEDS: FOLIC ACID 1MG TABLET PO SCH (08:35)
[2018-09-20] MEDS: METFORMIN HCL 500MG TABLET PO SCH (08:35)
[2018-09-20] MEDS: MONTELUKAST SODIUM 10MG TABLET PO SCH (17:20)
[2018-09-20] MEDS: ATORVASTATIN CALCIUM 20MG TABLET PO SCH (20:15)
[2018-09-20] MEDS: LOSARTAN POTASSIUM 50 MG TABLET PO SCH ×2 (20:15→20:40)
[2018-09-21] MEDS: IPRATROPIUM/ALBUTEROL 0.5-3(2.5)MG/3ML NEB HHN SCH ×6 (01:06→20:48)
[2018-09-21] MEDS: METHYLPREDNISOLONE SOD SUCC 40 MG/ML VIAL IV SCH ×3 (02:28→17:26)
[2018-09-21] MEDS: MORPHINE SULFATE 4 MG/ML CPJ (NOT FOR IM USE) IV PRN ×5 (03:51→21:40)
[2018-09-21 04:00] VITALS: BP 147/66
[2018-09-21] MEDS: INSULIN LISPRO 100 UNITS/ML SUBCUT SCH ×4 (06:51→21:40)
[2018-09-21] MEDS: BLOOD SUGAR DIAGNOSTIC STRIP TEST SCH ×4 (06:51→21:30)
[2018-09-21 08:00] VITALS: BP 153/61
[2018-09-21] MEDS: CHOLECALCIFEROL (D3) 1000 UNIT TABLET PO SCH (08:33)
[2018-09-21] MEDS: NAPROXEN 250MG TABLET PO SCH ×2 (08:34→20:38)
[2018-09-21] MEDS: TIZANIDINE HCL 4MG TABLET PO SCH ×2 (08:34→17:39)
[2018-09-21] MEDS: ATENOLOL 100 MG TABLET PO SCH ×2 (08:34→17:39)
[2018-09-21] MEDS: AMLODIPINE 5MG TABLET PO SCH (08:34)
[2018-09-21] MEDS: FAMOTIDINE 20MG TABLET PO SCH (08:34)
[2018-09-21] MEDS: LORATADINE 10MG TABLET PO SCH (08:34)
[2018-09-21] MEDS: FOLIC ACID 1MG TABLET PO SCH (08:34)
[2018-09-21] MEDS: METFORMIN HCL 500MG TABLET PO SCH (08:34)
[2018-09-21 10:11] LABS: BASOPHILS % 0.3 % (0.0-2.0); HEMATOCRIT. 33.1 % (36.0-48.0); LYMPHOCYTES % 7.2 % (20.0-50.0); MEAN CORPUSCULAR HEMOGLOBIN 31.9 pg (28.0-32.0); MEAN CORPUSCULAR VOLUME 96.1 fL (81.0-99.0); MEAN PLATELET VOLUME 8.7 fl (7.4-10.4); MONOCYTES % 6.1 % (2.0-8.0); NEUTROPHILS % 86.4 % (40.0-76.0); PLATELET 260 x1000/uL (130-400); RED BLOOD CELL COUNT 3.44 mill/uL (4.2-5.4); RED CELL DISTRIBUTION WIDTH 14.8 % (11.6-14.6)
[2018-09-21 12:00] VITALS: BP 133/70
[2018-09-21 16:00] VITALS: BP 142/58
[2018-09-21] MEDS ORDERED: MORPHINE SULFATE 2 MG/ML CPJ (NOT FOR IM USE) IV PRN (17:15)
[2018-09-21 17:16] LABS: INR 1.1; PROTHROMBIN TIME 10.6 sec (9.1-11.1)
[2018-09-21 17:33] LABS: PARTIAL THROMBOPLASTIN TIME 21.9 sec (23.4-31.0)
[2018-09-21] MEDS: MONTELUKAST SODIUM 10MG TABLET PO SCH (17:39)
[2018-09-21 20:00] VITALS: BP 132/58
[2018-09-21] MEDS: ATORVASTATIN CALCIUM 20MG TABLET PO SCH (20:38)
[2018-09-21] MEDS: LOSARTAN POTASSIUM 50 MG TABLET PO SCH ×2 (20:38→20:43)
[2018-09-22] VITALS (13 sets, daily range): BP systolic 100–182; BP diastolic 52–98
[2018-09-22] MEDS: IPRATROPIUM/ALBUTEROL 0.5-3(2.5)MG/3ML NEB HHN SCH ×6 (00:28→20:58)
[2018-09-22] MEDS: METHYLPREDNISOLONE SOD SUCC 40 MG/ML VIAL IV SCH ×3 (01:55→18:18)
[2018-09-22] MEDS: MORPHINE SULFATE 4 MG/ML CPJ (NOT FOR IM USE) IV PRN ×3 (01:56→18:20)
[2018-09-22] MEDS: AMLODIPINE 5MG TABLET PO SCH (06:34)
[2018-09-22] MEDS: ATENOLOL 100 MG TABLET PO SCH ×2 (06:35→18:19)
[2018-09-22] MEDS: BLOOD SUGAR DIAGNOSTIC STRIP TEST SCH ×4 (06:41→20:20)
[2018-09-22] MEDS: INSULIN LISPRO 100 UNITS/ML SUBCUT SCH ×4 (06:41→20:20)
[2018-09-22] MEDS ORDERED: CLONIDINE 0.2MG TABLET PO SCH (07:30)
[2018-09-22] MEDS ORDERED: CLONIDINE 0.1MG TABLET PO PRN (07:30)
[2018-09-22] MEDS ORDERED: MIDAZOLAM HCL 2 MG/2 ML VIAL ONE (09:16)
[2018-09-22] MEDS ORDERED: FENTANYL CITRATE/PF 50MCG/ML 2ML VIAL ONE (09:16)
[2018-09-22] MEDS ORDERED: SODIUM BICARBONATE 4% (2.4MEQ) 5ML VIAL IV ONE (09:17)
[2018-09-22] MEDS ORDERED: LIDOCAINE HCL 1% 20ML VIAL (Pyxis) INJ ONE (09:17)
[2018-09-22] MEDS ORDERED: FENTANYL CITRATE/PF 50MCG/ML 2ML VIAL IV ONE (09:25)
[2018-09-22] MEDS: TIZANIDINE HCL 4MG TABLET PO SCH ×2 (10:30→18:19)
[2018-09-22] MEDS: CHOLECALCIFEROL (D3) 1000 UNIT TABLET PO SCH (10:31)
[2018-09-22] MEDS: LORATADINE 10MG TABLET PO SCH (10:31)
[2018-09-22] MEDS: FOLIC ACID 1MG TABLET PO SCH (10:31)
[2018-09-22] MEDS: NAPROXEN 250MG TABLET PO SCH ×2 (10:31→20:35)
[2018-09-22] MEDS: FAMOTIDINE 20MG TABLET PO SCH (10:32)
[2018-09-22] MEDS: METFORMIN HCL 500MG TABLET PO SCH (10:34)
[2018-09-22 13:21] LABS: HEMATOCRIT 30.6 % (36.0-48.0); HEMOGLOBIN 10.3 g/dL (12.0-16.0); MEAN CORPUSCULAR HEMOGLOBIN 32.4 pg (28.0-32.0); MEAN CORPUSCULAR VOLUME 95.8 fL (81.0-99.0); PLATELET 219 x1000/uL (130-400); RED BLOOD CELL COUNT 3.19 mill/uL (4.2-5.4); RED CELL DISTRIBUTION WIDTH 14.7 % (11.6-14.6)
[2018-09-22] MEDS: MONTELUKAST SODIUM 10MG TABLET PO SCH (18:19)
[2018-09-22] MEDS: ATORVASTATIN CALCIUM 20MG TABLET PO SCH (20:35)
[2018-09-22] MEDS: LOSARTAN POTASSIUM 50 MG TABLET PO SCH (20:35)
[2018-09-23] VITALS: BP 130/64
[2018-09-23] MEDS: IPRATROPIUM/ALBUTEROL 0.5-3(2.5)MG/3ML NEB HHN SCH ×6 (00:05→20:56)
[2018-09-23] MEDS: METHYLPREDNISOLONE SOD SUCC 40 MG/ML VIAL IV SCH ×3 (01:17→18:15)
[2018-09-23] MEDS: MORPHINE SULFATE 4 MG/ML CPJ (NOT FOR IM USE) IV PRN ×4 (01:30→18:18)
[2018-09-23 04:00] VITALS: BP 154/80
[2018-09-23] MEDS: BLOOD SUGAR DIAGNOSTIC STRIP TEST SCH ×4 (06:20→20:15)
[2018-09-23] MEDS: INSULIN LISPRO 100 UNITS/ML SUBCUT SCH ×4 (06:22→20:18)
[2018-09-23 08:00] VITALS: BP 163/76
[2018-09-23] MEDS: AMLODIPINE 5MG TABLET PO SCH (08:38)
[2018-09-23] MEDS: METFORMIN HCL 500MG TABLET PO SCH (08:38)
[2018-09-23] MEDS: FOLIC ACID 1MG TABLET PO SCH (08:38)
[2018-09-23] MEDS: NAPROXEN 250MG TABLET PO SCH ×2 (08:38→20:16)
[2018-09-23] MEDS: TIZANIDINE HCL 4MG TABLET PO SCH ×2 (08:38→18:15)
[2018-09-23] MEDS: FAMOTIDINE 20MG TABLET PO SCH (08:38)
[2018-09-23] MEDS: CHOLECALCIFEROL (D3) 1000 UNIT TABLET PO SCH (08:38)
[2018-09-23] MEDS: ATENOLOL 100 MG TABLET PO SCH ×2 (08:39→18:16)
[2018-09-23] MEDS: LORATADINE 10MG TABLET PO SCH (08:39)
[2018-09-23 12:00] VITALS: BP 166/79
[2018-09-23 16:00] VITALS: BP 132/50
[2018-09-23] MEDS: MONTELUKAST SODIUM 10MG TABLET PO SCH (18:16)
[2018-09-23] MEDS ORDERED: LORAZEPAM 1MG TABLET PO PRN (19:00)
[2018-09-23 20:00] VITALS: BP 122/53
[2018-09-23] MEDS: ATORVASTATIN CALCIUM 20MG TABLET PO SCH (20:15)
[2018-09-23] MEDS: LOSARTAN POTASSIUM 50 MG TABLET PO SCH (20:16)
[2018-09-24] VITALS: BP 120/64
[2018-09-24] MEDS: MORPHINE SULFATE 4 MG/ML CPJ (NOT FOR IM USE) IV PRN ×2 (00:27→06:37)
[2018-09-24] MEDS: IPRATROPIUM/ALBUTEROL 0.5-3(2.5)MG/3ML NEB HHN SCH ×3 (01:50→07:39)
[2018-09-24] MEDS: METHYLPREDNISOLONE SOD SUCC 40 MG/ML VIAL IV SCH ×2 (02:16→09:55)
[2018-09-24 04:00] VITALS: BP 159/70
[2018-09-24] MEDS: INSULIN LISPRO 100 UNITS/ML SUBCUT SCH ×2 (05:45→12:05)
[2018-09-24] MEDS: BLOOD SUGAR DIAGNOSTIC STRIP TEST SCH ×2 (05:45→11:55)
[2018-09-24 06:28] LABS: HEMATOCRIT. 29.6 % (36.0-48.0); HEMOGLOBIN. 9.9 g/dL (12.0-16.0); MEAN CORPUSCULAR VOLUME 95.4 fL (81.0-99.0); MEAN PLATELET VOLUME 8.4 fl (7.4-10.4); PLATELET 203 x1000/uL (130-400); RED BLOOD CELL COUNT 3.11 mill/uL (4.2-5.4); RED CELL DISTRIBUTION WIDTH 14.7 % (11.6-14.6)
[2018-09-24 07:25] LABS: CHLORIDE 106 mEq/L (98-107)
[2018-09-24 08:00] VITALS: BP 157/99
[2018-09-24] MEDS: FOLIC ACID 1MG TABLET PO SCH (09:21)
[2018-09-24] MEDS: ATENOLOL 100 MG TABLET PO SCH (09:21)
[2018-09-24] MEDS: METFORMIN HCL 500MG TABLET PO SCH (09:21)
[2018-09-24] MEDS: LORATADINE 10MG TABLET PO SCH (09:21)
[2018-09-24] MEDS: TIZANIDINE HCL 4MG TABLET PO SCH (09:21)
[2018-09-24] MEDS: CHOLECALCIFEROL (D3) 1000 UNIT TABLET PO SCH (09:21)
[2018-09-24] MEDS: NAPROXEN 250MG TABLET PO SCH (09:21)
[2018-09-24] MEDS: AMLODIPINE 5MG TABLET PO SCH (09:21)
[2018-09-24] MEDS: FAMOTIDINE 20MG TABLET PO SCH (09:22)
[2018-09-24] MEDS ORDERED: MORPHINE SULFATE 4 MG/ML CPJ (NOT FOR IM USE) IV NR (09:45)
[2018-09-24 10:02] LABS: PLATELET ESTIMATE NORMAL
[2018-09-24 11:35] VITALS: BP 147/49
== END 2018-09-24 12:30 | disposition home or self-care (01) | DRG 435 ==
LOC: ER 09:10 → 5WST 12:17 → ENRESERV 13:17 → ER 15:10 → 5WST 09-17 14:00
PROVIDERS: ADMIT Internal Medicine; ATTEND Internal Medicine
PROC: 0FB23ZX Excision of Left Lobe Liver, Percutaneous Approach, Diagnostic (ICD-10-PCS; principal; 2018-09-22)
DX: C78.7 Secondary malignant neoplasm of liver and intrahepatic bile duct (principal); J18.9 Pneumonia, unspecified organism; J96.20 Acute and chronic respiratory failure, unspecified whether with hypoxia or hypercapnia; J45.902 Unspecified asthma with status asthmaticus; J44.0 Chronic obstructive pulmonary disease with (acute) lower respiratory infection; N39.0 Urinary tract infection, site not specified; I31.3 Pericardial effusion (noninflammatory); E44.1 Mild protein-calorie malnutrition; E11.22 Type 2 diabetes mellitus with diabetic chronic kidney disease; N18.9 Chronic kidney disease, unspecified; F17.200 Nicotine dependence, unspecified, uncomplicated; G89.4 Chronic pain syndrome; I12.9 Hypertensive chronic kidney disease with stage 1 through stage 4 chronic kidney disease, or unspecified chronic kidney disease; E11.40 Type 2 diabetes mellitus with diabetic neuropathy, unspecified; K21.9 Gastro-esophageal reflux disease without esophagitis; B19.20 Unspecified viral hepatitis C without hepatic coma; N28.1 Cyst of kidney, acquired; E78.00 Pure hypercholesterolemia, unspecified; I25.10 Atherosclerotic heart disease of native coronary artery without angina pectoris; B96.20 Unspecified Escherichia coli [E. coli] as the cause of diseases classified elsewhere; Z88.8 Allergy status to other drugs, medicaments and biological substances; Z87.01 Personal history of pneumonia (recurrent)
CPT/HCPCS: 36415; 36600; 71045; 71046; 71270; 76700; 76942; 80048; 82375; 82805; 82962; 83605; 83735; 83880; 84100; 84145; 84484; 85027; 85651; 87070; 87077; 87186; 87804; 88307; 88313; 93005; 93306; 94640; 96374; 97162; 97166; 97535; 99291; J0456; J1650; J1815; J1956; J2250; J2270; J2405; J2920; J3010; J3490; J7050; J7060; J7512; J7611; J7620; Q9967

== ENCOUNTER 2018-10-03 13:58 | Inpatient (IN) | payer MEDICARE, OTHER ==
[~2018-10-03] VITALS: Ht 165.1 cm; Wt 60.0 kg
[~2018-10-03 13:58] MED LIST changes: -DULO60CA44 PO; -MORP15TA67 PO; -MORP30TA66 PO; -PREG75CA PO
[2018-10-03] MEDS ORDERED: ALBUTEROL (0.083%) 2.5MG/3ML NEB HHN STA (15:49)
[2018-10-03] MEDS ORDERED: METHYLPREDNISOLONE SOD SUCC 125 MG/2 ML VIAL IV STA (15:49)
[2018-10-03] MEDS ORDERED: IPRATROPIUM BROMIDE (0.02%) 0.5MG/2.5ML NEB HHN STA (15:49)
[2018-10-03] MEDS ORDERED: SODIUM CHLORIDE 0.9% 1,000 ML IV ONE (15:49)
[2018-10-03] MEDS ORDERED: MAGNESIUM 2 G PREMIX 50 ML IV ONE (16:00)
[2018-10-03] MEDS ORDERED: RACEPINEPHRINE 2.25% 0.5ML NEB VIAL HHN ONE (16:00)
[2018-10-03 16:26] LABS: CHLORIDE 106 mEq/L (98-107); HEMATOCRIT. 31.8 % (36.0-48.0); HEMOGLOBIN. 10.8 g/dL (12.0-16.0); MEAN CORPUSCULAR HEMOGLOBIN 32.4 pg (28.0-32.0); MEAN CORPUSCULAR VOLUME 95.6 fL (81.0-99.0); MEAN PLATELET VOLUME 9.1 fl (7.4-10.4); PLATELET 190 x1000/uL (130-400); RED BLOOD CELL COUNT 3.33 mill/uL (4.2-5.4)
[2018-10-03 16:31] LABS: INR 1.1; PROTHROMBIN TIME 10.7 sec (9.1-11.1)
[2018-10-03] MEDS ORDERED: PIPERACILLIN/TAZ 3.375G PREMIX 50 ML IV ONE (16:45)
[2018-10-03 17:09] LABS: PLATELET ESTIMATE NORMAL
[2018-10-03] MEDS ORDERED: LEVOFLOXACIN 500MG PREMIX 100 ML IV ONE (19:15)
[2018-10-03] MEDS ORDERED: MORPHINE SULFATE 4 MG/ML CPJ (NOT FOR IM USE) IV ONE (19:15)
[2018-10-03 23:10] VITALS: BP 147/58
[2018-10-04 01:00] VITALS: BP 144/61
[2018-10-04 04:00] VITALS: BP 145/64
[2018-10-04] MEDS: MORPHINE SULFATE 4 MG/ML CPJ (NOT FOR IM USE) IV PRN (06:44)
[2018-10-04] MEDS: IPRATROPIUM/ALBUTEROL 0.5-3(2.5)MG/3ML NEB HHN SCH ×4 (07:00→21:01)
[2018-10-04 08:00] VITALS: BP 153/78
[2018-10-04] MEDS ORDERED: DEXTROSE 50% WATER 50ML SYRINGE IV PRN ×2 (09:15)
[2018-10-04] MEDS: INSULIN LISPRO 100 UNITS/ML SUBCUT SCH ×5 (09:36→20:33)
[2018-10-04] MEDS: BLOOD SUGAR DIAGNOSTIC STRIP TEST SCH ×4 (09:36→20:30)
[2018-10-04] MEDS: METFORMIN HCL 500MG TABLET PO SCH ×2 (11:16→17:53)
[2018-10-04] MEDS: POTASSIUM CHLORIDE 20MEQ TABLET SR PO SCH ×4 (11:17→17:52)
[2018-10-04] MEDS: LORATADINE 10MG TABLET PO SCH (11:18)
[2018-10-04] MEDS: ATENOLOL 100 MG TABLET PO SCH ×2 (11:18→21:56)
[2018-10-04] MEDS: METHYLPREDNISOLONE SOD SUCC 40 MG/ML VIAL IV SCH ×3 (11:19→21:56)
[2018-10-04] MEDS ORDERED: LORAZEPAM 2MG/ML CPJ IV NR (11:43)
[2018-10-04] MEDS ORDERED: LORAZEPAM 2MG/ML CPJ IV PRN (11:45)
[2018-10-04] MEDS ORDERED: LORAZEPAM 1MG TABLET PO NR (11:45)
[2018-10-04] MEDS ORDERED: GADOBENATE DIMEGLUMINE 529 MG/ML 10ML IV ONE (12:27)
[2018-10-04 20:00] VITALS: BP 156/66
[2018-10-04] MEDS: MONTELUKAST SODIUM 10MG TABLET PO SCH (21:55)
[2018-10-05] VITALS: BP 148/58
[2018-10-05] MEDS: MORPHINE SULFATE 4 MG/ML CPJ (NOT FOR IM USE) IV PRN ×5 (00:28→23:59)
[2018-10-05] MEDS: IPRATROPIUM/ALBUTEROL 0.5-3(2.5)MG/3ML NEB HHN SCH ×6 (00:53→20:03)
[2018-10-05 04:00] VITALS: BP 142/55
[2018-10-05] MEDS: BLOOD SUGAR DIAGNOSTIC STRIP TEST SCH ×4 (06:16→20:42)
[2018-10-05] MEDS: METFORMIN HCL 500MG TABLET PO SCH ×2 (06:16→17:07)
[2018-10-05] MEDS: INSULIN LISPRO 100 UNITS/ML SUBCUT SCH ×4 (06:16→21:02)
[2018-10-05 06:32] LABS: HEMATOCRIT. 31.5 % (36.0-48.0); HEMOGLOBIN. 10.4 g/dL (12.0-16.0); MEAN CORPUSCULAR HEMOGLOBIN 32.1 pg (28.0-32.0); MEAN CORPUSCULAR VOLUME 97.2 fL (81.0-99.0); PLATELET 178 x1000/uL (130-400); RED BLOOD CELL COUNT 3.24 mill/uL (4.2-5.4); RED CELL DISTRIBUTION WIDTH 17.1 % (11.6-14.6)
[2018-10-05 06:38] LABS: CHLORIDE 110 mEq/L (98-107)
[2018-10-05] MEDS: METHYLPREDNISOLONE SOD SUCC 40 MG/ML VIAL IV SCH ×3 (06:39→20:38)
[2018-10-05 06:47] LABS: PHOSPHORUS 2.1 mg/dL (2.5-4.9)
[2018-10-05 08:00] VITALS: BP 174/69
[2018-10-05] MEDS ORDERED: DIATR MEGLU/DIATRIZOATE SOLN 120ML ONE (09:14)
[2018-10-05] MEDS: LORATADINE 10MG TABLET PO SCH (09:30)
[2018-10-05] MEDS: POTASSIUM CHLORIDE 20MEQ TABLET SR PO SCH ×3 (09:30→17:07)
[2018-10-05] MEDS: ATENOLOL 100 MG TABLET PO SCH ×2 (09:30→20:38)
[2018-10-05 10:46] LABS: PLATELET ESTIMATE NORMAL
[2018-10-05 12:00] VITALS: BP 157/68
[2018-10-05 16:00] VITALS: BP 165/70
[2018-10-05 20:00] VITALS: BP_SYST 147; BP_SYST 149; BP_DIAS 56; BP_DIAS 61
[2018-10-05] MEDS: MONTELUKAST SODIUM 10MG TABLET PO SCH (20:38)
[2018-10-05] MEDS: LOSARTAN POTASSIUM 50 MG TABLET PO SCH (21:00)
[2018-10-05] MEDS ORDERED: MEDICATION NOT ON FORMULARY EA (Losartan Potassium 1 TAB) PO SCH (21:00)
[2018-10-06] VITALS: BP 171/72
[2018-10-06] MEDS: IPRATROPIUM/ALBUTEROL 0.5-3(2.5)MG/3ML NEB HHN SCH ×4 (00:10→21:03)
[2018-10-06 04:00] VITALS: BP 146/61
[2018-10-06] MEDS: MORPHINE SULFATE 4 MG/ML CPJ (NOT FOR IM USE) IV PRN ×5 (04:00→21:44)
[2018-10-06] MEDS: METHYLPREDNISOLONE SOD SUCC 40 MG/ML VIAL IV SCH ×3 (05:35→21:21)
[2018-10-06] MEDS: BLOOD SUGAR DIAGNOSTIC STRIP TEST SCH ×4 (07:10→21:03)
[2018-10-06] MEDS: INSULIN LISPRO 100 UNITS/ML SUBCUT SCH ×4 (07:29→21:00)
[2018-10-06 07:36] LABS: HEMOGLOBIN. 10.7 g/dL (12.0-16.0); MEAN CORPUSCULAR HEMOGLOBIN 32.4 pg (28.0-32.0); MEAN CORPUSCULAR VOLUME 96.9 fL (81.0-99.0); MEAN PLATELET VOLUME 9.1 fl (7.4-10.4); PLATELET 175 x1000/uL (130-400); RED BLOOD CELL COUNT 3.31 mill/uL (4.2-5.4); RED CELL DISTRIBUTION WIDTH 17.1 % (11.6-14.6)
[2018-10-06] MEDS: METFORMIN HCL 500MG TABLET PO SCH ×2 (07:50→17:37)
[2018-10-06 07:55] LABS: CHLORIDE 113 mEq/L (98-107)
[2018-10-06 08:00] VITALS: BP 172/72
[2018-10-06] MEDS: AMLODIPINE 5MG TABLET PO SCH (08:00)
[2018-10-06] MEDS: LORATADINE 10MG TABLET PO SCH (08:00)
[2018-10-06] MEDS: ATENOLOL 100 MG TABLET PO SCH ×2 (08:01→21:02)
[2018-10-06 08:12] LABS: PHOSPHORUS 2.1 mg/dL (2.5-4.9)
[2018-10-06] MEDS ORDERED: MEDICATION NOT ON FORMULARY EA (Amlodipine Besylate 1 TAB) PO SCH (09:00)
[2018-10-06 10:41] LABS: PLATELET ESTIMATE NORMAL
[2018-10-06 12:00] VITALS: BP 142/62
[2018-10-06 16:00] VITALS: BP 161/69
[2018-10-06] MEDS: CLONIDINE 0.1MG TABLET PO PRN (17:38)
[2018-10-06 20:00] VITALS: BP 151/58
[2018-10-06] MEDS: MONTELUKAST SODIUM 10MG TABLET PO SCH (21:01)
[2018-10-06] MEDS: ENOXAPARIN 40MG/0.4ML SYR SUBCUT SCH (21:03)
[2018-10-06] MEDS: LOSARTAN POTASSIUM 50 MG TABLET PO SCH (21:21)
[2018-10-07] VITALS: BP 176/71
[2018-10-07] MEDS: IPRATROPIUM/ALBUTEROL 0.5-3(2.5)MG/3ML NEB HHN SCH ×7 (00:22→20:05)
[2018-10-07] MEDS: CLONIDINE 0.1MG TABLET PO PRN (00:36)
[2018-10-07] MEDS: MORPHINE SULFATE 4 MG/ML CPJ (NOT FOR IM USE) IV PRN ×3 (01:47→17:24)
[2018-10-07 04:00] VITALS: BP 149/63
[2018-10-07] MEDS: METHYLPREDNISOLONE SOD SUCC 40 MG/ML VIAL IV SCH ×3 (05:45→21:50)
[2018-10-07] MEDS: INSULIN LISPRO 100 UNITS/ML SUBCUT SCH ×4 (06:28→20:50)
[2018-10-07] MEDS: BLOOD SUGAR DIAGNOSTIC STRIP TEST SCH ×4 (06:28→20:50)
[2018-10-07 07:27] LABS: CHLORIDE 112 mEq/L (98-107)
[2018-10-07 07:33] LABS: PHOSPHORUS 4.1 mg/dL (2.5-4.9)
[2018-10-07 07:42] LABS: BASOPHILS % 0.6 % (0.0-2.0); HEMATOCRIT. 32.1 % (36.0-48.0); HEMOGLOBIN. 10.5 g/dL (12.0-16.0); LYMPHOCYTES % 8.6 % (20.0-50.0); MEAN CORPUSCULAR HEMOGLOBIN 31.9 pg (28.0-32.0); MEAN CORPUSCULAR VOLUME 97.4 fL (81.0-99.0); MEAN PLATELET VOLUME 9.5 fl (7.4-10.4); MONOCYTES % 4.9 % (2.0-8.0); NEUTROPHILS % 85.9 % (40.0-76.0); PLATELET 181 x1000/uL (130-400)
[2018-10-07 08:00] VITALS: BP 144/61
[2018-10-07] MEDS: METFORMIN HCL 500MG TABLET PO SCH ×2 (09:02→17:24)
[2018-10-07] MEDS: AMLODIPINE 5MG TABLET PO SCH (09:02)
[2018-10-07] MEDS: LORATADINE 10MG TABLET PO SCH (09:02)
[2018-10-07] MEDS: ATENOLOL 100 MG TABLET PO SCH ×2 (09:02→21:49)
[2018-10-07 12:00] VITALS: BP 135/73
[2018-10-07 16:00] VITALS: BP 138/71
[2018-10-07 20:00] VITALS: BP 145/53
[2018-10-07] MEDS ORDERED: POTASSIUM CHLORIDE 20MEQ TABLET SR PO NR (20:30)
[2018-10-07] MEDS ORDERED: FUROSEMIDE 40MG/4ML VIAL IVP NR (21:00)
[2018-10-07] MEDS: ENOXAPARIN 40MG/0.4ML SYR SUBCUT SCH (21:00)
[2018-10-07] MEDS: LOSARTAN POTASSIUM 50 MG TABLET PO SCH (21:49)
[2018-10-07] MEDS: MONTELUKAST SODIUM 10MG TABLET PO SCH (21:49)
[2018-10-07] MEDS ORDERED: MAGNESIUM/ALUMINUM HYDROXIDE/SIMETHICONE 30ML UDC PO PRN (22:15)
[2018-10-08] MEDS: MORPHINE SULFATE 4 MG/ML CPJ (NOT FOR IM USE) IV PRN ×5 (00:02→20:12)
[2018-10-08 00:03] VITALS: BP 140/62
[2018-10-08 00:30] LABS: HEMATOCRIT. 32.4 % (36.0-48.0); HEMOGLOBIN. 10.9 g/dL (12.0-16.0); MEAN CORPUSCULAR HEMOGLOBIN 32.5 pg (28.0-32.0); MEAN CORPUSCULAR VOLUME 96.4 fL (81.0-99.0); MEAN PLATELET VOLUME 9.1 fl (7.4-10.4); PLATELET 160 x1000/uL (130-400); RED BLOOD CELL COUNT 3.36 mill/uL (4.2-5.4); RED CELL DISTRIBUTION WIDTH 17.2 % (11.6-14.6)
[2018-10-08] MEDS: IPRATROPIUM/ALBUTEROL 0.5-3(2.5)MG/3ML NEB HHN SCH ×5 (03:19→21:20)
[2018-10-08 03:29] LABS: PLATELET ESTIMATE NORMAL
[2018-10-08 04:00] VITALS: BP 151/62
[2018-10-08] MEDS: METHYLPREDNISOLONE SOD SUCC 40 MG/ML VIAL IV SCH ×3 (05:53→21:07)
[2018-10-08] MEDS: BLOOD SUGAR DIAGNOSTIC STRIP TEST SCH ×4 (06:16→21:07)
[2018-10-08] MEDS: INSULIN LISPRO 100 UNITS/ML SUBCUT SCH ×4 (06:16→21:00)
[2018-10-08 08:29] VITALS: BP 149/66
[2018-10-08] MEDS: METFORMIN HCL 500MG TABLET PO SCH ×2 (08:32→17:25)
[2018-10-08] MEDS: AMLODIPINE 5MG TABLET PO SCH ×2 (08:32→21:05)
[2018-10-08] MEDS: ATENOLOL 100 MG TABLET PO SCH (08:32)
[2018-10-08] MEDS: PANTOPRAZOLE 40MG DR TABLET PO SCH (08:33)
[2018-10-08] MEDS: LORATADINE 10MG TABLET PO SCH (08:33)
[2018-10-08] MEDS ORDERED: FUROSEMIDE 40MG/4ML VIAL IVP NR (09:00)
[2018-10-08] MEDS ORDERED: POTASSIUM CHLORIDE 20MEQ TABLET SR PO NR ×2 (09:00→22:00)
[2018-10-08] MEDS ORDERED: CLONIDINE 0.1MG TABLET PO PRN (11:00)
[2018-10-08] MEDS ORDERED: CLONIDINE 0.2MG TABLET PO PRN (11:00)
[2018-10-08 12:00] VITALS: BP 125/59
[2018-10-08 12:01] LABS: HEMATOCRIT. 34.2 % (36.0-48.0); HEMOGLOBIN. 11.5 g/dL (12.0-16.0); MEAN CORPUSCULAR HEMOGLOBIN 32.6 pg (28.0-32.0); MEAN CORPUSCULAR VOLUME 96.6 fL (81.0-99.0); MEAN PLATELET VOLUME 9.1 fl (7.4-10.4); PLATELET 167 x1000/uL (130-400); RED BLOOD CELL COUNT 3.54 mill/uL (4.2-5.4); RED CELL DISTRIBUTION WIDTH 16.9 % (11.6-14.6)
[2018-10-08 12:14] LABS: CHLORIDE 105 mEq/L (98-107)
[2018-10-08 12:43] LABS: PLATELET ESTIMATE NORMAL
[2018-10-08 16:00] VITALS: BP 128/50
[2018-10-08 16:26] LABS: BG CARBOXYHEMOGLOBIN 0.1 % (0.5-1.5); BG DEOXYHEMOGLOBIN 8.4 % (0.0-5.0); BG FRACTION INSPIRED OXYGEN 21; BG HCO3 ACT 21.7 mmol/L (22.0-26.0); BG METHEMOGLOBIN 0.2 % (0.0-1.5); BG OXYGEN SATURATION 91.6 % (92.0-98.5); BG OXYHEMOGLOBIN 91.3 % (94.0-97.0); BG PCO2 30.5 mmHg (35.0-45.0); BG PH 7.471 (7.350-7.450); BG PO2 63.1 mmHg (75.0-100.0); BG SAMPLE SITE RIGHT BRACHIAL; BG TOTAL HEMOGLOBIN 12.3 g/dL (12.0-18.0); BG VENT MODE ROOM AIR
[2018-10-08] MEDS: NEBIVOLOL HCL 5 MG TABLET PO SCH (17:25)
[2018-10-08 20:00] VITALS: BP 163/65
[2018-10-08] MEDS: MONTELUKAST SODIUM 10MG TABLET PO SCH (21:05)
[2018-10-08] MEDS: LOSARTAN POTASSIUM 50 MG TABLET PO SCH (21:05)
[2018-10-08] MEDS: ENOXAPARIN 40MG/0.4ML SYR SUBCUT SCH (21:07)
[2018-10-09] VITALS (8 sets, daily range): BP systolic 120–153; BP diastolic 49–78
[2018-10-09] MEDS: MORPHINE SULFATE 4 MG/ML CPJ (NOT FOR IM USE) IV PRN ×5 (00:38→20:24)
[2018-10-09] MEDS: IPRATROPIUM/ALBUTEROL 0.5-3(2.5)MG/3ML NEB HHN SCH ×6 (01:25→22:41)
[2018-10-09] MEDS: METHYLPREDNISOLONE SOD SUCC 40 MG/ML VIAL IV SCH ×3 (05:22→21:18)
[2018-10-09] MEDS: INSULIN LISPRO 100 UNITS/ML SUBCUT SCH ×4 (06:15→21:00)
[2018-10-09] MEDS: BLOOD SUGAR DIAGNOSTIC STRIP TEST SCH ×4 (06:15→21:18)
[2018-10-09] MEDS: PANTOPRAZOLE 40MG DR TABLET PO SCH (06:28)
[2018-10-09 07:19] LABS: HEMATOCRIT. 32.4 % (36.0-48.0); HEMOGLOBIN. 10.9 g/dL (12.0-16.0); MEAN CORPUSCULAR HEMOGLOBIN 32.9 pg (28.0-32.0); MEAN CORPUSCULAR VOLUME 97.4 fL (81.0-99.0); MEAN PLATELET VOLUME 9.3 fl (7.4-10.4); PLATELET 157 x1000/uL (130-400); RED BLOOD CELL COUNT 3.33 mill/uL (4.2-5.4); RED CELL DISTRIBUTION WIDTH 17.3 % (11.6-14.6)
[2018-10-09 07:24] LABS: CHLORIDE 106 mEq/L (98-107)
[2018-10-09] MEDS: METFORMIN HCL 500MG TABLET PO SCH ×2 (08:36→18:57)
[2018-10-09] MEDS: NEBIVOLOL HCL 5 MG TABLET PO SCH ×2 (08:37→20:25)
[2018-10-09] MEDS: AMLODIPINE 5MG TABLET PO SCH ×2 (08:37→20:24)
[2018-10-09] MEDS: LORATADINE 10MG TABLET PO SCH (08:37)
[2018-10-09 12:07] LABS: PLATELET ESTIMATE NORMAL
[2018-10-09] MEDS ORDERED: FUROSEMIDE 40MG/4ML VIAL IVP NR ×2 (16:15→22:45)
[2018-10-09] MEDS: MONTELUKAST SODIUM 10MG TABLET PO SCH (20:24)
[2018-10-09] MEDS: LOSARTAN POTASSIUM 50 MG TABLET PO SCH (20:24)
[2018-10-09] MEDS: ENOXAPARIN 40MG/0.4ML SYR SUBCUT SCH (20:25)
[2018-10-09] MEDS ORDERED: POTASSIUM CHLORIDE 20MEQ TABLET SR PO NR (22:45)
[2018-10-10 00:17] VITALS: BP 153/57
[2018-10-10] MEDS: IPRATROPIUM/ALBUTEROL 0.5-3(2.5)MG/3ML NEB HHN SCH ×5 (01:21→14:06)
[2018-10-10] MEDS: MORPHINE SULFATE 4 MG/ML CPJ (NOT FOR IM USE) IV PRN ×3 (01:33→11:00)
[2018-10-10 04:00] VITALS: BP 125/57
[2018-10-10] MEDS: METHYLPREDNISOLONE SOD SUCC 40 MG/ML VIAL IV SCH ×2 (06:03→13:02)
[2018-10-10] MEDS: INSULIN LISPRO 100 UNITS/ML SUBCUT SCH ×2 (06:17→13:03)
[2018-10-10] MEDS: BLOOD SUGAR DIAGNOSTIC STRIP TEST SCH ×2 (06:17→12:20)
[2018-10-10 08:00] VITALS: BP 116/54
[2018-10-10] MEDS: LORATADINE 10MG TABLET PO SCH (08:58)
[2018-10-10] MEDS: AMLODIPINE 5MG TABLET PO SCH (08:58)
[2018-10-10] MEDS: METFORMIN HCL 500MG TABLET PO SCH (08:58)
[2018-10-10] MEDS ORDERED: FAMOTIDINE 20MG TABLET PO SCH (09:00)
[2018-10-10] MEDS: NEBIVOLOL HCL 5 MG TABLET PO SCH ×2 (09:00→12:20)
[2018-10-10 09:05] VITALS: BP 134/67
[2018-10-10 11:00] VITALS: BP 134/67
== END 2018-10-10 14:55 | disposition home or self-care (01) | DRG 292 ==
LOC: ER 13:58 → 8WST 16:49 → EDBEDREQ 16:57 → ENRESERV 22:04 → CANRESERV 22:46 → ENRESERV 22:46
PROVIDERS: ADMIT Internal Medicine; ATTEND Internal Medicine
DX: I13.0 Hypertensive heart and chronic kidney disease with heart failure and stage 1 through stage 4 chronic kidney disease, or unspecified chronic kidney disease (principal); C79.9 Secondary malignant neoplasm of unspecified site; C34.90 Malignant neoplasm of unspecified part of unspecified bronchus or lung; I87.1 Compression of vein; J44.1 Chronic obstructive pulmonary disease with (acute) exacerbation; J44.0 Chronic obstructive pulmonary disease with (acute) lower respiratory infection; N39.0 Urinary tract infection, site not specified; I50.9 Heart failure, unspecified; R13.10 Dysphagia, unspecified; R59.1 Generalized enlarged lymph nodes; E11.22 Type 2 diabetes mellitus with diabetic chronic kidney disease; E11.42 Type 2 diabetes mellitus with diabetic polyneuropathy; I25.10 Atherosclerotic heart disease of native coronary artery without angina pectoris; G89.4 Chronic pain syndrome; N18.9 Chronic kidney disease, unspecified; E78.00 Pure hypercholesterolemia, unspecified; B96.20 Unspecified Escherichia coli [E. coli] as the cause of diseases classified elsewhere; D3A.8 Other benign neuroendocrine tumors; I12.9 Hypertensive chronic kidney disease with stage 1 through stage 4 chronic kidney disease, or unspecified chronic kidney disease; N28.1 Cyst of kidney, acquired; Z85.118 Personal history of other malignant neoplasm of bronchus and lung; Z99.81 Dependence on supplemental oxygen; F17.200 Nicotine dependence, unspecified, uncomplicated; Z79.84 Long term (current) use of oral hypoglycemic drugs
CPT/HCPCS: 36415; 36600; 70553; 71045; 74220; 80048; 82375; 82805; 82962; 83735; 83880; 84100; 84443; 84484; 85007; 85027; 93005; 93970; 94618; 94640; 96365; 96375; 99285; A9577; J1650; J1815; J1940; J1956; J2060; J2270; J2543; J2920; J2930; J3475; J7030; J7611; J7620; Q9963